=== PATIENT | female | born 1965 | race Caucasian/White ===

== ENCOUNTER 2017-11-27 11:58 | Inpatient (IN) | payer OTHER ==
[~2017-11-27] VITALS: Ht 165.1 cm; Wt 50.8 kg
[~2017-11-27 11:58] MED LIST: PERCOCET 325 MG1 TA2 PO
--- NOTE | 2017-11-27 12:07 | ED DYSPNEA/ASTHMA COMPLAINT ---
History of Present Illness General Chief Complaint: General Adult Stated Complaint: BIBA FOR SOB, FLU SYMPTOMS Source: patient, family, EMS Exam Limitations: no limitations Vital Signs & Intake/Output Vital Signs & Intake/Output Vital Signs Date Time Temp Pulse Resp B/P B/P Pulse O2 O2 Flow FiO2 Mean Ox Delivery Rate 11/28 1408 98.0 59 18 110/80 94 Nasal 3.0L Cannula 11/28 1236 98 Nasal 3.0L Cannula 11/28 0800 95 Nasal 4.0L Cannula 11/28 0634 98.0 64 20 90/60 96 Nasal 3.0L Cannula 11/28 0000 Nasal 2.5L Cannula 11/27 2307 Nasal 3.0L Cannula 11/27 2146 98.1 72 24 100/66 95 Nasal 3.0L Cannula ED Intake and Output 11/28 0000 11/27 1200 Intake Total 690 Output Total Balance 690 Intake, IV 300 Intake, Oral 390 Number 1 Bowel Movements Patient 112 lb Weight Weight Reported by Patient Measurement Method Reconcile Medications No Known Home Medications Triage Nurses Notes Reviewed? yes Onset: Abrupt Duration: day(s): (5), constant, getting worse Timing: recent history Severity: moderate, severe Activities at Onset: none HPI: 52-year-old female comes into emergency room for further evaluation of shortness of breath. Patient reports that she started to feel sick this past . In general malaise and fatigue. She then started to experience some diarrhea chills body aches. She's been coughing with associated source of breath. She has a history of a [id number]. She still smokes every day. History of emphysema. She is not on oxygen at home. Mucus production with cough. Symptoms got progressively worse. It reveals reports that her oxygen saturation was in the high 80s when he arrived. They gave her 125 mg of Solu-Medrol as well as a DuoNeb. (Larry Castaneda) Allergies Coded Allergies: latex (Severe, HIVES 11/27/17) azithromycin (From ZITHROMAX) (Intermediate, DIARRHEA 11/27/17) Penicillins (UNKNOWN 11/27/17) (Devon LEZAMA,Kar) Past History Travel History Traveled to [place] past 21 day No Medical History Any Pertinent Medical History? see below for history Respiratory: COPD Surgical History Surgical History: non-contributory Family History Hx Contributory? No (Larry Castaneda) Review of Systems Review of Systems Constitutional: Reports: see HPI. EENTM: Reports: no symptoms. Respiratory: Reports: see HPI. Cardiovascular: Reports: see HPI. GI: Reports: see HPI. Genitourinary: Reports: no symptoms. Musculoskeletal: Reports: no symptoms. Skin: Reports: no symptoms. Neurological/Psychological: Reports: no symptoms. Hematologic/Endocrine: Reports: no symptoms. Immunologic/Allergic: Reports: no symptoms. All Other Systems: Reviewed and Negative (Larry Castaneda) Physical Exam Physical Exam General Appearance: well developed/nourished, moderate distress Head: atraumatic Eyes: Bilateral: normal appearance. Ears, Nose, Throat: normal ENT inspection, hearing grossly normal Neck: normal inspection Respiratory: decreased breath sounds, respiratory distress (moderate) Cardiovascular: regular rate/rhythm Extremities: normal inspection Neurologic/Psych: awake, alert, oriented x 3 Skin: intact, normal color Core Measures ACS in differential dx? Yes CVA/TIA Diagnosis No Sepsis Present: No Sepsis Focused Exam Completed? No (Larry Castaneda) Progress Differential Diagnosis: asthma, AMI, bronchitis, CHF, COPD, pericarditis, pulmonary embolism, pneumonia, pneumothorax Plan of Care: Orders Procedure Date/time Status CBC WITHOUT DIFFERENTIAL 11/29 0600 Active BASIC ELECTROLYTES PLUS BUN&CR 11/29 0600 Active PT Evaluate & Treat 11/28 UNK Active EKG 11/28 UNK Active NUTRITIONAL CONSULT 11/28 UNK Active RT: Evaluation 11/27 2307 Active OXYGEN SETUP [facility] 11/27 UNK Complete INCENTIVE SPIROMETRY TRX G 11/27 UNK Complete OXYGEN 11/27 UNK Complete OXYGEN TRANSPORT 11/27 UNK Complete Current Medications Sig/Shaq Start time Last Medication Dose Stop Time Status Admin Moxifloxacin HCl 400 MG DAILY 11/29 1000 AC (Avelox) Methylprednisolone 40 MG Q12 11/28 2200 AC (Solumedrol) Enoxaparin Sodium 40 MG DAILY 11/28 1000 AC (Lovenox) Albuterol Sulfate 2 PUF Q4H 11/28 0000 AC 11/28 (Ventolin) 0358 Acetaminophen 1,000 MG Q6P PRN 11/27 1515 AC (Ofirmev) Hydromorphone HCl 0.4 MG Q12P PRN 11/27 1515 AC (Dilaudid) Ibuprofen 600 MG Q6P PRN 11/27 1515 AC (Motrin) Laboratory Tests 11/28/17 0836: Anion Gap 11, Estimated GFR > 60, BUN/Creatinine Ratio 15.0, Total Bilirubin 0.4 , Direct Bilirubin 0.3, AST 19, ALT 30, Alkaline Phosphatase 80, Total Protein 6.9, Albumin 3.9, CBC w Diff NO MAN DIFF REQ, RBC 4.49, MCV 88.4, MCH 30.5, RDW 13.2, MPV 7.4, Gran % 89.9 H, Lymphocytes % 6.5 L, Monocytes % 3.5, Eosinophils % 0, Basophils % 0.1, Absolute Granulocytes 7.7 H, Absolute Lymphocytes 0.6 L, Absolute Monocytes 0.3, Absolute Eosinophils 0, Absolute Basophils 0, PUBS MCHC 34.5 Diagnostic Imaging: Viewed by Me: Radiology Read. Discussed w/RAD: Radiology Read. Radiology Impression: PATIENT: SHANNAN TRAN PRESENT AGE: 52 PATIENT ACCOUNT NO: [id number] : [id number] LOCATION: [facility] ORDERING PHYSICIAN: Larry ROSA SERVICE DATE: 11/27/17 EXAM TYPE: RAD - XRY-PORTABLE CHEST XRAY EXAMINATION: XR PORTABLE CHEST CLINICAL INFORMATION: Shortness of breath. COMPARISON: Chest x-rays 08/18/[address] chest 08/22/2017 TECHNIQUE: Portable frontal view of the chest was obtained. FINDINGS: Cardiomediastinal silhouette is within normal limits. Lungs appear hyperlucent suggesting underlying emphysematous changes. No focal consolidation. Mild hazy opacity noted at the right lung base likely reflecting atelectasis and/or overlapping structures. No pleural effusion or pneumothorax. No acute osseous abnormality. IMPRESSION: Slight hazy opacity at the right lung base likely reflects atelectasis and/or overlapping structures. Developing pneumonia cannot be completely excluded. Clinical correlation recommended. DICTATED BY: Ced Ga DO DATE/TIME DICTATED:11/27/171515 MEDICINE MAN:AILYN DATE/ TIME TRANSCRIBED:11/27/171515 CONFIDENTIAL, DO NOT COPY WITHOUT APPROPRIATE AUTHORIZATION. <Electronically signed in Other Vendor System> SIGNED BY: Ced Ga DO 11/27/17 1523 Initial ED EKG: normal sinus rhythm, rate (99), borderline t wave abnormalities (Larry Castaneda) Departure Departure Disposition: STILL A PATIENT Condition: Stable Clinical Impression Primary Impression: COPD exacerbation Secondary Impressions: Pneumonia Departure Forms: Customer Survey General Discharge Information Prescriptions: Current Visit Scripts No Known Home Medications Admission Note Spoke With: Reese Barahona MD Documentation of Exam: Documentation of any treatments & extenuating circumstances including Concerns Regarding Discharge (functional status, medication knowledge or non-compliance, living conditions, etc.) that warrant an admission rather than observation: Patient was still tachypnea care in the emergency room. She cannot finish a sentence without causing every other word to catch her breath. She still has rhonchi and wheezing on exam. She has received a continuous nebulizer Solu- Medrol and IV magnesium. Patient will require supplemental oxygen. Pulmonary consult. Respiratory therapy care. Not safe for discharge medically. pt will require iv antibiotics. (Larry Castaneda) PA/TYPER Co-Sign Statement Statement: ED Attending supervision documentation- x I saw and evaluated the patient. I have also reviewed all the pertinent lab results and diagnostic results. I agree with the findings and the plan of care as documented in the PA's/TYPER's documentation. COPD with LUND, hypoxia, pneumonia on CXR [] I have reviewed the ED Record and agree with the PA's/TYPER's documentation. [] Additions or exceptions (if any) to the PAs/TYPER's note and plan are summarized below: [] (Devon LEZAMA,Kar) Critical Care Note Critical Care Note Critical Care Time: 30-74 min (60) (Larry Castaneda)
[2017-11-27 12:54] LABS: ABSOLUTE BASOPHIL COUNT 0 /CUMM (0.0-0.2); ABSOLUTE EOSINOPHIL COUNT 0 /CUMM (0.0-0.7); ABSOLUTE GRANULOCYTE CT 7.1 /CUMM (1.4-6.5); ABSOLUTE LYMPH COUNT 0.7 /CUMM (1.2-3.4); ABSOLUTE MONOCYTE COUNT 0.5 /CUMM (0.10-0.60); BASOPHIL % 0 % (0.0-2.0); EOSINOPHIL % 0 % (0-5); HEMATOCRIT 40.2 % (37-47); MEAN CORPUSCULAR HGB 30.3 PG (27.0-31.0); MEAN CORPUSCULAR VOLUME 88.9 FL (81.0-99.0); MEAN PLATELET VOLUME 6.9 FL (7.4-10.4); RBC DISTRIBUTION WIDTH 12.9 % (11.5-14.5); RED BLOOD CELL CT 4.52 /CUMM (4.20-5.40); WHITE BLOOD CELL COUNT 8.2 /CUMM (4.8-10.8)
[2017-11-27 13:17] LABS: GRANULOCYTE % 85.7 % (42.2-75.2); PLATELET COUNT 232 /CUMM (130-400)
--- NOTE | 2017-11-27 15:09 | History & Physical ---
Gustavo LEZAMA,[facility] 11/27/17 1508: General Information and HPI MD Statement: I have seen and personally examined SHANNAN RECIO and documented this H&P. The patient is a 52 year old F who presented with a patient stated chief complaint of [SOB]. Source of Information: patient, family History of Present Illness: 52 yo F with pmhx of copd, 80 pack year current smoker, vulva cancer, colon cancer s/p chemo and radiation, 6 c-sections, back injury presenting for shortness of breath. Patietn states she started to feel sick this associated with faitgue, dirrhea, chills, and body aches. She has been having productive yellow sputum cough and shortness of breath. States she has been using her home albuterol without any relief. States she came into the ED today because she has had a difficult time moving and associated fecal incontinence with movement since she has been sick. Allergies/Medications Home Med list No Known Home Medications Past History Travel History Traveled to [place] past 21 day No Medical History Respiratory: COPD Cancer(s): colon/rectal cancer, vaginal cancer Surgical History Surgical History: non-contributory Review of Systems Review of Systems Constitutional: Reports: see HPI, chills, malaise, weakness. Denies: fever. Cardiovascular: Denies: chest pain. Respiratory: Reports: cough, short of breath, sputum production. GI: Reports: diarrhea, bowel incontinence, changes in stool. Exam & Diagnostic Data Last 24 Hrs of Vital Signs/I&O Vital Signs Date Time Temp Pulse Resp B/P B/P Pulse O2 O2 Flow FiO2 Mean Ox Delivery Rate 11/28 0000 Nasal 2.5L Cannula 11/27 2307 Nasal 3.0L Cannula 11/27 2146 98.1 72 24 100/66 95 Nasal 3.0L Cannula 11/27 1859 97.8 78 24 100/64 95 Nasal 3.0L Cannula 11/27 1822 Nasal 2.5L Cannula 11/27 1545 98.3 96 22 116/50 94 Nasal 2.5L Cannula 11/27 1222 96 Nasal 2.5L Cannula 11/27 1210 95 Nasal 2.0L Cannula 11/27 1208 99.0 108 26 124/56 94 Room Air Intake & Output 11/28 0800 11/28 0000 11/27 1600 Intake Total 690 Output Total Balance 690 Intake, IV 300 Intake, Oral 390 Number 1 Bowel Movements Patient 112 lb 112 lb Weight Weight Reported by Patient Estimated Measurement Method Physical Exam General Appearance Alert, Oriented X3, Cooperative, Mild Distress Cardiovascular Regular Rate, Normal S1, Normal S2 Lungs diffuse decrease air movement Abdomen Normal Bowel Sounds, Soft, No Tenderness Extremities 2+ radial pulses b/l Last 24 Hrs of Labs/Reji: Laboratory Tests 11/27/17 1604: Urine Color YEL, Urine Clarity HAZY H, Urine pH 6.0, Ur Specific [place] 1.025, Urine Protein TRACE H, Urine Ketones >=80, Urine Nitrite NEG, Urine Bilirubin NEG@ICTO, Urine Urobilinogen 0.2, Ur Leukocyte Esterase NEG, Ur Microscopic SEDIMENT EXAMINED, Urine RBC RARE, Urine WBC RARE, Ur Epithelial Cells RARE, Urine Bacteria FEW H, Urine Mucus FEW, Urine Hemoglobin TRACE-INTACT, Urine Glucose NEG 11/27/17 1245: Anion Gap 13, Estimated GFR > 60, BUN/Creatinine Ratio 13.3, Glucose 126 H, Calcium 8.8, Total Bilirubin 0.7, AST 23, ALT 32, Alkaline Phosphatase 78, Troponin I < 0.01, Total Protein 6.7, Albumin 3.8, Globulin 2.9, Albumin/ Globulin Ratio 1.3, CBC w Diff NO MAN DIFF REQ, RBC 4.52, MCV 88.9, MCH 30.3, RDW 12.9, MPV 6.9 L, Gran % 85.7 H, Lymphocytes % 8.5 L, Monocytes % 5.8, Eosinophils % 0, Basophils % 0, Absolute Granulocytes 7.1 H, Absolute Lymphocytes 0.7 L, Absolute Monocytes 0.5, Absolute Eosinophils 0, Absolute Basophils 0, PUBS MCHC 34.0 Microbiology 11/27 1914 LOWER RESP: Respiratory Culture - RES 11/27 1914 LOWER RESP: Gram Stain - RES 11/27 160 URINE ROUT: Legionella Antigen - COMP 11/27 160 URINE ROUT: Streptococcus pneumoniae Antigen (M - COMP STREP PNEUMO BACTERIAL AG 11/27 1440 NASOPHARYN: Influenza Virus A & B Rapid Smear - COMP Assessment/Plan Assessment: 52 yo F with pmhx of copd, 80 pack year current smoker, vulva cancer, colon cancer s/p chemo and radiation, 6 c-sections, back injury presenting for shortness of breath most likely due to COPD exascerbation #COPD exascaerbation WBC 8.2 trop <.01 negative flu CXR: Slight hazy opacity at the right lung base likely reflects atelectasis urine strep pneumo + -f/u sputum cx -cont trc, nebs, solumedrol -f/u pulm consult -smoking cessaiton #low K 3.0 -replete as needed #borderline low Na 134 -cont to monitor #hx of reported abnormal lfts -f/u LFTS #DNR DNI #DVT prophylaxos - lovenox As Ranked By This Provider Problem List: 1. COPD exacerbation 2. Pneumonia Core Measures/Misc (08/12) Acute Coronary Syndrome ACS Diagnosis: No Congestive Heart Failure Congestive Heart Failure Diagnosis No Cerebrovascular Accident CVA/TIA Diagnosis: No VTE (View Protocol) VTE Risk Factors Acute Medical Illness No Mechanical VTE Prophylaxis d/t Other No VTE Pharm Prophylaxis d/t NA PharmProphylax ordered Sepsis (View protocol) Sepsis Present: No Albalwai,Afaf 11/27/17 1750: General Information and HPI Allergies/Medications Allergies: Coded Allergies: latex (Severe, HIVES 11/27/17) azithromycin (From ZITHROMAX) (Intermediate, DIARRHEA 11/27/17) Penicillins (UNKNOWN 11/27/17) Resident Review Statement Resident Statement: examined this patient, discussed with help desk internship, agreed with help desk internship, discussed with family, discussed with nursing, reviewed images Other Findings: Mrs. Recio is a 52 yo lady current every day smoker (80 pack/year) with PMHx. of COPD (Emphysema) not on home O2, diagnosed by her PCP, Hx. of colon cancer 2/ 2 chemotherapy and radiotherapy, Hx. of vulvular cancer s/p resection presented with a c/o SOB, productive cought for the last 5 days. 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 Vitals, examination, labs and imaging as above. Assessment: #COPD exacerbation #Heavy smoker Plan: -Will admitt the patient to general medicine floor -Will start her on Solumedrol 40mg Q8hr -Will start Iv azithromycin for anti-inflammatory effect -Will send sputum culture -TRC/ NEBS -CBC, bep at am -Will check LFT, as she mentioned abnormal level recently -Pulmonary consult DVTppx. Lovenox DNR/DNI (Discussed clearly with the patient and she doesn't want resuscitation)
--- NOTE | 2017-11-27 15:23 | RADIOLOGY REPORT ---
EXAMINATION: XR PORTABLE CHEST CLINICAL INFORMATION: Shortness of breath. COMPARISON: Chest x-rays 08/18/[address] chest 08/22/2017 TECHNIQUE: Portable frontal view of the chest was obtained. FINDINGS: Cardiomediastinal silhouette is within normal limits. Lungs appear hyperlucent suggesting underlying emphysematous changes. No focal consolidation. Mild hazy opacity noted at the right lung base likely reflecting atelectasis and/or overlapping structures. No pleural effusion or pneumothorax. No acute osseous abnormality. IMPRESSION: Slight hazy opacity at the right lung base likely reflects atelectasis and/or overlapping structures. Developing pneumonia cannot be completely excluded. Clinical correlation recommended.
--- NOTE | 2017-11-27 18:43 | Admission Certification ---
Admission Certification Certification Statement - As attending physician, I certify that at the time of - admission, based on clinical presentation, severity of - symptoms, need for further diagnostic testing and - therapeutic interventions, and risk of adverse outcomes - without in-hospital treatment, in my clinical assessment, - this patient requires an acute hospital stay for a minimum - of two nights or longer. I have also considered psychsocial - factors such as support system, advanced age, financial - issues, cognitive issues, and failed out-patient treatments, - past re-admission history, safety of patient, and lack of - compliance as applicable. Specific rationale supporting this admission is: Shortness of breath, malaise laceration of COPD and pneumonia
[2017-11-27 18:59] VITALS: BP 100/64
--- NOTE | 2017-11-27 18:59 | PN- Att Addend ---
Attending Addendum Attending Brief Note 52-year-old white female have known for many years, and advised many times to quit smoking but she did not quit, for a few days not feeling well with malaise shortness of breath got worse cough sputum safely worse to the point that she got so short of breath could hardly walk comes to the ER in some respiratory distress, was given respiratory treatments and prednisone. Patient had chest x- ray and CT that shows her COPD and the possible pneumonia and she was given IV erythromycin but half an hour after she got severe diarrhea her temp max was 99, her white count is within normal limits. Her O2 sats 94 on oxygen, she does not use oxygen at home. Will check her sputum might adjust her antibiotics continue oxygen and total respiratory care Laboratory Tests 11/27 11/27 1604 1245 Chemistry Sodium (137 - 145 mmol/L) 134 L Potassium (3.5 - 5.1 mmol/L) 3.0 L Chloride (98 - 107 mmol/L) 97 L Carbon Dioxide (22 - 30 mmol/L) 25 Anion Gap (5 - 16) 13 BUN (7 - 17 mg/dL) 8 Creatinine (0.5 - 1.0 mg/dL) 0.6 Estimated GFR (>60 ml/min) > 60 BUN/Creatinine Ratio (7 - 25 %) 13.3 Glucose (65 - 99 mg/dL) 126 H Calcium (8.4 - 10.2 mg/dL) 8.8 Total Bilirubin (0.2 - 1.3 mg/dL) 0.7 AST (14 - 36 U/L) 23 ALT (9 - 52 U/L) 32 Alkaline Phosphatase (<127 U/L) 78 Troponin I (< 0.11 ng/ml) < 0.01 Total Protein (6.3 - 8.2 g/dL) 6.7 Albumin (3.5 - 5.0 g/dL) 3.8 Globulin (1.9 - 4.2 gm/dL) 2.9 Albumin/Globulin Ratio (1.1 - 2.2 %) 1.3 Hematology CBC w Diff NO MAN DIFF REQ WBC (4.8 - 10.8 /CUMM) 8.2 RBC (4.20 - 5.40 /CUMM) 4.52 Hgb (12.0 - 16.0 G/DL) 13.7 Hct (37 - 47 %) 40.2 MCV (81.0 - 99.0 FL) 88.9 MCH (27.0 - 31.0 PG) 30.3 RDW (11.5 - 14.5 %) 12.9 Plt Count (130 - 400 /CUMM) 232 MPV (7.4 - 10.4 FL) 6.9 L Gran % (42.2 - 75.2 %) 85.7 H Lymphocytes % (20.5 - 51.1 %) 8.5 L Monocytes % (1.7 - 9.3 %) 5.8 Eosinophils % (0 - 5 %) 0 Basophils % (0.0 - 2.0 %) 0 Absolute Granulocytes (1.4 - 6.5 /CUMM) 7.1 H Absolute Lymphocytes (1.2 - 3.4 /CUMM) 0.7 L Absolute Monocytes (0.10 - 0.60 /CUMM) 0.5 Absolute Eosinophils (0.0 - 0.7 /CUMM) 0 Absolute Basophils (0.0 - 0.2 /CUMM) 0 PUBS MCHC (33.0 - 37.0 G/DL) 34.0 Urines Urine Color (YEL,AMB,STR) YEL Urine Clarity (CLEAR) HAZY H Urine pH (5.0 - 8.0) 6.0 Ur Specific [place] (1.001 - 1.035) 1.025 Urine Protein (NEG,<30 MG/DL) TRACE H Urine Ketones (NEG) >=80 Urine Nitrite (NEG) NEG Urine Bilirubin (NEG) NEG@ICTO Urine Urobilinogen (0.1 - 1.0 EU/dl) 0.2 Ur Leukocyte Esterase (NEG) NEG Ur Microscopic SEDIMENT EXAMINED Urine RBC (0 - 5 /HPF) RARE Urine WBC (0 - 2 /HPF) RARE Ur Epithelial Cells (NONE,FEW) RARE Urine Bacteria (NEG/NONE) FEW H Urine Mucus (FEW,NONE) FEW Urine Hemoglobin (NEG) TRACE-INTACT Urine Glucose (N MG/DL) NEG
[2017-11-27 21:46] VITALS: BP 100/66
[2017-11-28 06:34] VITALS: BP 90/60
--- NOTE | 2017-11-28 10:12 | PN- Att Addend ---
Attending Addendum Attending Brief Note Patient feeling better sitting in bed, able to talk without being short of breath, oxygen on. Temp max 99 no major changes on physical to continue present treatment 24 TOTALS 11/28 0000 11/27 0000 Intake Total 690 Output Total Balance 690 Intake, IV 300 Intake, Oral 390 Number 1 Bowel Movements Patient 112 lb Weight Weight Reported by Patient Measurement Method Current Medications Sig/Shaq Start time Last Medication Dose Route Stop Time Status Admin Acetaminophen 1,000 MG Q6P PRN 11/27 1515 AC IV Albuterol Sulfate 2 PUF Q4H 11/28 0000 AC 11/28 INH 0358 Albuterol Sulfate 2 PUF Q4 11/27 1800 DC 11/27 INH 2013 Albuterol Sulfate 3 ML ONCE ONE 11/27 1215 DC 11/27 INH 11/27 1216 1222 Albuterol Sulfate 3 ML ONCE ONE 11/27 1215 DC 11/27 INH 11/27 1216 1222 Albuterol Sulfate 3 ML ONCE ONE 11/27 1215 DC 11/27 INH 11/27 1216 1222 Azithromycin 500 MG DAILY 11/27 1552 DC 11/27 Sodium Chloride 250 ML IV 1617 Ceftriaxone Sodium 1,000 MG DAILY 11/28 1000 UNVr IV Enoxaparin Sodium 40 MG DAILY 11/28 1000 AC SC Hydromorphone HCl 0.4 MG Q12P PRN 11/27 1515 AC IV Ibuprofen 600 MG Q6P PRN 11/27 1515 AC PO Magnesium Sulfate 1 GM ONCE ONE 11/27 1215 DC 11/27 Dextrose/Water 100 ML IV 11/27 1614 1226 Methylprednisolone 40 MG Q8H 11/28 0400 AC 11/28 IV 0358 Methylprednisolone 40 MG Q8 11/27 1706 DC 11/27 IV 2012 Potassium Chloride 0 .STK-MED ONE 11/27 1534 DC PO Potassium Chloride 60 MEQ ONCE ONE 11/27 1515 DC 11/27 PO 11/27 1516 1549 Laboratory Tests 11/28/17 0836: Anion Gap 11, Estimated GFR > 60, BUN/Creatinine Ratio 15.0, Total Bilirubin 0.4 , Direct Bilirubin 0.3, AST 19, ALT 30, Alkaline Phosphatase 80, Total Protein 6.9, Albumin 3.9, CBC w Diff Pending, WBC Pending, RBC Pending, Hgb Pending, Hct Pending, MCV Pending, MCH Pending, RDW Pending, Plt Count Pending, MPV Pending, PUBS MCHC Pending 11/27/17 1604: Urine Color YEL, Urine Clarity HAZY H, Urine pH 6.0, Ur Specific [place] 1.025, Urine Protein TRACE H, Urine Ketones >=80, Urine Nitrite NEG, Urine Bilirubin NEG@ICTO, Urine Urobilinogen 0.2, Ur Leukocyte Esterase NEG, Ur Microscopic SEDIMENT EXAMINED, Urine RBC RARE, Urine WBC RARE, Ur Epithelial Cells RARE, Urine Bacteria FEW H, Urine Mucus FEW, Urine Hemoglobin TRACE-INTACT, Urine Glucose NEG 11/27/17 1245: Anion Gap 13, Estimated GFR > 60, BUN/Creatinine Ratio 13.3, Glucose 126 H, Calcium 8.8, Total Bilirubin 0.7, AST 23, ALT 32, Alkaline Phosphatase 78, Troponin I < 0.01, Total Protein 6.7, Albumin 3.8, Globulin 2.9, Albumin/ Globulin Ratio 1.3, CBC w Diff NO MAN DIFF REQ, RBC 4.52, MCV 88.9, MCH 30.3, RDW 12.9, MPV 6.9 L, Gran % 85.7 H, Lymphocytes % 8.5 L, Monocytes % 5.8, Eosinophils % 0, Basophils % 0, Absolute Granulocytes 7.1 H, Absolute Lymphocytes 0.7 L, Absolute Monocytes 0.5, Absolute Eosinophils 0, Absolute Basophils 0, PUBS MCHC 34.0 Microbiology 11/27 160 URINE ROUT: Legionella Antigen - COMP 11/27 160 URINE ROUT: Streptococcus pneumoniae Antigen (M - COMP STREP PNEUMO BACTERIAL AG 11/27 1440 NASOPHARYN: Influenza Virus A & B Rapid Smear - COMP Microbiology Date/Time Procedure - Status Source Growth 11/27 1914 Respiratory Culture - RES LOWER RESP 11/27 1914 Gram Stain - RES LOWER RESP 11/27 1604 Legionella Antigen - COMP URINE ROUT 11/27 160 Streptococcus pneumoniae Antigen (M - COMP URINE ROUT STREP PNEUMO BACTERIAL AG 11/27 1440 Influenza Virus A & B Rapid Smear - COMP NASOPHARYN Vital Signs Date Time Temp Pulse Resp B/P B/P Pulse O2 O2 Flow FiO2 Mean Ox Delivery Rate 11/28 0800 95 Nasal 4.0L Cannula 11/28 0634 98.0 64 20 90/60 96 Nasal 3.0L Cannula 11/28 0000 Nasal 2.5L Cannula 11/27 2307 Nasal 3.0L Cannula 11/27 2146 98.1 72 24 100/66 95 Nasal 3.0L Cannula 11/27 1859 97.8 78 24 100/64 95 Nasal 3.0L Cannula 11/27 1822 Nasal 2.5L Cannula 11/27 1545 98.3 96 22 116/50 94 Nasal 2.5L Cannula 11/27 1222 96 Nasal 2.5L Cannula 11/27 1210 95 Nasal 2.0L Cannula 11/27 1208 99.0 108 26 124/56 94 Room Air
[2017-11-28 10:21] LABS: ABSOLUTE BASOPHIL COUNT 0 /CUMM (0.0-0.2); ABSOLUTE EOSINOPHIL COUNT 0 /CUMM (0.0-0.7); ABSOLUTE GRANULOCYTE CT 7.7 /CUMM (1.4-6.5); ABSOLUTE LYMPH COUNT 0.6 /CUMM (1.2-3.4); ABSOLUTE MONOCYTE COUNT 0.3 /CUMM (0.10-0.60); BASOPHIL % 0.1 % (0.0-2.0); EOSINOPHIL % 0 % (0-5); HEMATOCRIT 39.7 % (37-47); MEAN CORPUSCULAR HGB 30.5 PG (27.0-31.0); MEAN CORPUSCULAR HGB CONC 34.5 G/DL (33.0-37.0); MEAN CORPUSCULAR VOLUME 88.4 FL (81.0-99.0); MEAN PLATELET VOLUME 7.4 FL (7.4-10.4); RBC DISTRIBUTION WIDTH 13.2 % (11.5-14.5); RED BLOOD CELL CT 4.49 /CUMM (4.20-5.40); WHITE BLOOD CELL COUNT 8.6 /CUMM (4.8-10.8)
[2017-11-28 10:55] LABS: GRANULOCYTE % 89.9 % (42.2-75.2); PLATELET COUNT 279 /CUMM (130-400)
--- NOTE | 2017-11-28 11:22 | PN- Housestaff ---
Subjective Follow-up For: SOB Subjective: States she is feeling better. SOB improved. Cough improving. Sputum production slightly less Review of Systems Constitutional: Reports: see HPI. Cardiovascular: Reports: no symptoms. Respiratory: Reports: cough, short of breath, sputum production. Gastrointestinal: Reports: no symptoms. Genitourinary: Reports: no symptoms. Musculoskeletal: Reports: no symptoms. Objective Last 24 Hrs of Vital Signs/I&O Vital Signs Date Time Temp Pulse Resp B/P B/P Pulse O2 O2 Flow FiO2 Mean Ox Delivery Rate 11/28 1408 98.0 59 18 110/80 94 Nasal 3.0L Cannula 11/28 1236 98 Nasal 3.0L Cannula 11/28 0800 95 Nasal 4.0L Cannula 11/28 0634 98.0 64 20 90/60 96 Nasal 3.0L Cannula 11/28 0000 Nasal 2.5L Cannula 11/27 2307 Nasal 3.0L Cannula 11/27 2146 98.1 72 24 100/66 95 Nasal 3.0L Cannula 11/27 1859 97.8 78 24 100/64 95 Nasal 3.0L Cannula 11/27 1822 Nasal 2.5L Cannula Intake & Output 11/28 1600 11/28 0800 11/28 0000 Intake Total 720 240 690 Output Total 400 Balance 320 240 690 Intake, IV 300 Intake, Oral 720 240 390 Number 0 1 Bowel Movements Output, Urine 400 Patient 112 lb 112 lb Weight Weight Reported by Patient Measurement Method Physical Exam General Appearance: Alert, Oriented X3, Cooperative, No Acute Distress Skin Temp/Moisture Exam: Warm/Dry Cardiovascular: Regular Rate, Normal S1, Normal S2 Lungs: decreased lung sounds diffusely Abdomen: Normal Bowel Sounds, Soft, No Tenderness Extremities: 2 radial pulses Current Medications: Current Medications Sig/Shaq Start time Last Medication Dose Route Stop Time Status Admin Acetaminophen 1,000 MG Q6P PRN 11/27 1515 AC IV Albuterol Sulfate 2 PUF Q4H 11/28 0000 AC 11/28 INH 0358 Albuterol Sulfate 2 PUF Q4 11/27 1800 DC 11/27 INH 2013 Azithromycin 500 MG DAILY 11/27 1552 DC 11/27 Sodium Chloride 250 ML IV 1617 Ceftriaxone Sodium 1,000 MG DAILY 11/28 1000 DC IV Ciprofloxacin 500 MG BID 11/28 1047 DC 11/28 PO 12/02 1046 1130 Enoxaparin Sodium 40 MG DAILY 11/28 1000 AC SC Hydromorphone HCl 0.4 MG Q12P PRN 11/27 1515 AC IV Ibuprofen 600 MG Q6P PRN 11/27 1515 AC PO Methylprednisolone 40 MG Q12 11/28 2200 AC IV Methylprednisolone 40 MG Q8H 11/28 0400 DC 11/28 IV 1130 Methylprednisolone 40 MG Q8 11/27 1706 DC 11/27 IV 2012 Moxifloxacin HCl 400 MG DAILY 11/29 1000 AC PO Patient Medication 1 ED ONE ONE 11/28 1230 SC Teaching ED 11/28 1231 Last 24 Hrs of Lab/Reji Results Last 24 Hrs of Labs/Mics: Laboratory Tests 11/28/17 0836: Anion Gap 11, Estimated GFR > 60, BUN/Creatinine Ratio 15.0, Total Bilirubin 0.4 , Direct Bilirubin 0.3, AST 19, ALT 30, Alkaline Phosphatase 80, Total Protein 6.9, Albumin 3.9, CBC w Diff NO MAN DIFF REQ, RBC 4.49, MCV 88.4, MCH 30.5, RDW 13.2, MPV 7.4, Gran % 89.9 H, Lymphocytes % 6.5 L, Monocytes % 3.5, Eosinophils % 0, Basophils % 0.1, Absolute Granulocytes 7.7 H, Absolute Lymphocytes 0.6 L, Absolute Monocytes 0.3, Absolute Eosinophils 0, Absolute Basophils 0, PUBS MCHC 34.5 Microbiology 11/27 1914 LOWER RESP: Respiratory Culture - RES 11/27 1914 LOWER RESP: Gram Stain - RES Assessment/Plan Assessment: 52 yo F with pmhx of copd, 80 pack year current smoker, vulva cancer, colon cancer s/p chemo and radiation, 6 c-sections, back injury presenting for shortness of breath most likely due to COPD exascerbation #COPD exascaerbation WBC 8.6 trop <.01 negative flu CXR: Slight hazy opacity at the right lung base likely reflects atelectasis urine strep pneumo + -f/u pulm consult -cont cipro -f/u sputum cx -cont trc, nebs, solumedrol -f/u pulm consult -smoking cessaiton #low K - resolved 4.1 -replete as needed #borderline low Na - resolved 139 -cont to monitor #hx of reported abnormal lfts LFTs normal #DNR DNI #DVT prophylaxos - lovenox Problem List: 1. Pneumonia 2. COPD exacerbation Pain Ratin Pain Location: none Pain Goal: Pain 4 or less Pain Plan: pain pathway Tomorrow's Labs & Rationales: cbc bep
[2017-11-28 14:08] VITALS: BP 110/80
--- NOTE | 2017-11-28 23:49 | Event Note ---
Event Note Event Note: S; I was informed by the nurse that the patient wants to leave AMA. B; Patient was admitted for shortness of breath likely secondary to COPD exacerbation secondary to pneumonia. Patient was treated with IV Solu-Medrol and ciprofloxacin. A/R; My resident and myself went to speak with the patient. She was sitting comfortably in her bed and stated she wants to go home to smoke a cigarette and be with her Cat during the snowstorm and also does not want to take IV steroids as it makes her furious and aggressive. Patient was informed about all the risks of leaving AMA. Dr. Barahona was called and was notified of the above event.
[2017-11-29] MEDS ORDERED: PREDNISONE10 M2 PO (14:55)
[2017-11-29] MEDS ORDERED: PROAIR HFA8.5 GM INH (14:55)
== END 2017-11-28 21:30 | disposition left against medical advice (07) | DRG 140 ==
LOC: ERH 11:58 → 2NA 14:18 → ERHI 14:18 → ENRESERV 16:09 → ENTRNSPT 17:59 → 2NA 18:15 → CMPTRNSPT 18:20 → 2NA 11-28 21:30
PROVIDERS: Physician Assistant Medical; Student in an Organized Health Care Education/Training Program
DX: J44.0 Chronic obstructive pulmonary disease with (acute) lower respiratory infection (principal); J18.9 Pneumonia, unspecified organism; J44.1 Chronic obstructive pulmonary disease with (acute) exacerbation; Z66 Do not resuscitate; F17.210 Nicotine dependence, cigarettes, uncomplicated; Z85.038 Personal history of other malignant neoplasm of large intestine; Z85.44 Personal history of malignant neoplasm of other female genital organs
CPT/HCPCS: 2NASP; 36415; 71045; 81001; 82436; 87070; 87449; 87450; 87804; 87804-59; 93005; 93010; 94644; 96365; 96366; 99291; J0456; J1650; J2920; J3490; J7040

== ENCOUNTER 2017-11-29 14:08 | Inpatient (IN) | payer OTHER ==
[~2017-11-29] VITALS: Ht 165.1 cm; Wt 45.4 kg
--- NOTE | 2017-11-29 14:32 | ED DYSPNEA/ASTHMA COMPLAINT ---
History of Present Illness General Chief Complaint: Dyspnea (COPD, CHF, Other) Stated Complaint: COPD,PNA, LEFT AMA 11/28 Source: patient, family, old records Exam Limitations: no limitations Vital Signs & Intake/Output Vital Signs & Intake/Output Vital Signs Date Time Temp Pulse Resp B/P B/P Pulse O2 O2 Flow FiO2 Mean Ox Delivery Rate 11/29 1559 Room Air Room Air 11/29 1555 98.1 74 20 104/56 95 Room Air 11/29 1413 98.0 102 20 125/85 94 Room Air Allergies Coded Allergies: latex (Severe, HIVES 11/27/17) azithromycin (From ZITHROMAX) (Intermediate, DIARRHEA 11/27/17) Penicillins (UNKNOWN 11/27/17) Reconcile Medications Albuterol Sulfate (Proair Hfa) 90 MCG HFA.AER.AD 2 PUF INH Q4-6 PRN PRN SHORTNESS OF BREATH (Reported) Prednisone 10 MG TABLET 1 TAB PO DAILY STEROID (Reported) Triage Note: PT TO ED FOR SOB, LEFT DILEEP AMA YESTERDAY "BECAUSE I COULDN'T SMOKE AND I HAD THINGS TO DO" STATING SHE WAS ADMITTED FOR COPD EXACERBATION AND PNA, RETURNING TO ED TODAY FOR WORSENING SOB AND LUND. Triage Nurses Notes Reviewed? yes HPI: Patient was admitted on November 27 for COPD exacerbation and pneumonia. Patient signed out AMA on November 28. Patient states her breathing is worsening and she spoke to her primary care physician who can answer to come back to the hospital for readmission. Productive cough. Positive chills. Positive anorexia. No orthopnea. No chest pain or chest tightness. Patient took steroids and used her nebulizer just prior to presentation to the emergency department. Past History Travel History Traveled to [place] past 21 day No Medical History Any Pertinent Medical History? 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 No Review of Systems Review of Systems Constitutional: Reports: see HPI, chills, weakness. EENTM: Reports: no symptoms, see HPI. Respiratory: Reports: see HPI, cough, short of breath, sputum production, wheezing. Cardiovascular: Reports: no symptoms. GI: Reports: see HPI. Genitourinary: Reports: no symptoms. Musculoskeletal: Reports: no symptoms. Skin: Reports: no symptoms. Neurological/Psychological: Reports: no symptoms. Hematologic/Endocrine: Reports: no symptoms. Immunologic/Allergic: Reports: no symptoms. All Other Systems: Reviewed and Negative Physical Exam Physical Exam General Appearance: well developed/nourished, alert, awake, anxious, moderate distress Head: atraumatic Eyes: Bilateral: PERRL, EOMI. Ears, Nose, Throat: normal pharynx, normal ENT inspection, hearing grossly normal Neck: normal inspection, supple, full range of motion Respiratory: decreased breath sounds, wheezing, respiratory distress Cardiovascular: regular rate/rhythm, normal peripheral pulses Gastrointestinal: normal bowel sounds, soft, non-tender Extremities: normal inspection, normal capillary refill, normal range of motion, no edema Neurologic/Psych: no motor/sensory deficits, awake, alert, oriented x 3, normal mood/affect Skin: intact, normal color, warm/dry Lymphatic: no anterior cervical lv Core Measures ACS in differential dx? No CVA/TIA Diagnosis No Sepsis Present: No Sepsis Focused Exam Completed? No Progress Differential Diagnosis: bronchitis, COPD, pneumonia Plan of Care: Orders Procedure Date/time Status Regular Diet 11/30 B Active ED Holding Orders 11/29 1710 Active Admit to inpatient 11/29 171 Active Vital Signs 11/29 171 Active Code Status 11/29 171 Active COMPREHENSIVE METABOLIC PANEL 11/29 1431 Complete CBC WITHOUT DIFFERENTIAL 11/29 1431 Complete Current Medications Sig/Shaq Start time Last Medication Dose Stop Time Status Admin Nicotine 2 MG Q2P PRN 11/29 1445 AC (Nicotine) Laboratory Tests 11/29/17 1500: Anion Gap 12, Estimated GFR > 60, BUN/Creatinine Ratio 22.9, Glucose 114 H, Calcium 9.4, Total Bilirubin 0.5, AST 26, ALT 41, Alkaline Phosphatase 80, Total Protein 7.1, Albumin 4.1, Globulin 3.0, Albumin/Globulin Ratio 1.4, CBC w Diff NO MAN DIFF REQ, RBC 4.90, MCV 90.3, MCH 29.7, RDW 13.3, MPV 7.2 L, Gran % 76.9 H, Lymphocytes % 17.8 L, Monocytes % 4.9, Eosinophils % 0.1, Basophils % 0.3, Absolute Granulocytes 9.3 H, Absolute Lymphocytes 2.1, Absolute Monocytes 0.6, Absolute Eosinophils 0, Absolute Basophils 0, PUBS MCHC 32.9 L Diagnostic Imaging: Viewed by Me: Radiology Read. Discussed w/RAD: Radiology Read. CXR Impression: PATIENT: SHANNAN TRAN PRESENT AGE: 52 PATIENT ACCOUNT NO: [id number] : 67 LOCATION: [facility] ORDERING PHYSICIAN: Jeff Sewell MD SERVICE DATE: 11/29/17 EXAM TYPE: RAD - XRY- PORTABLE CHEST XRAY EXAMINATION: XR PORTABLE CHEST CLINICAL INFORMATION: Cough and shortness of breath. COMPARISON: 11/27/2017 TECHNIQUE: Portable frontal view of the chest was obtained. FINDINGS: The lungs appear hyperexpanded. No consolidation, edema, or effusion. Improvement of the previous hazy right basilar opacity. No pneumothorax. The cardiomediastinal silhouette is within normal limits. No acute osseous abnormality. IMPRESSION: Hyperexpanded lungs. No consolidation. DICTATED BY: Corbin Falk MD DATE/TIME DICTATED:11/29/171506 SENIOR SALES REPRESENTATIVE:AILYN DATE/TIME TRANSCRIBED:11/29/171506 CONFIDENTIAL, DO NOT COPY WITHOUT APPROPRIATE AUTHORIZATION. <Electronically signed in Other Vendor System> SIGNED BY: Corbin Falk MD 11/29/17 1510 Initial ED EKG: none Departure Departure Disposition: STILL A PATIENT Condition: Fair Clinical Impression Primary Impression: COPD exacerbation Referrals: Reese Barahona MD (PCP/Family) Departure Forms: Customer Survey General Discharge Information Admission Note Spoke With: Reese Barahona MD Documentation of Exam: Documentation of any treatments & extenuating circumstances including Concerns Regarding Discharge (functional status, medication knowledge or non-compliance, living conditions, etc.) that warrant an admission rather than observation: [IV STEROIDS, NEBS, ABX, RESP TREATMENT, PULM CONSULT] Critical Care Note Critical Care Note Critical Care Time: non-applicable
[2017-11-29] MEDS ORDERED: PREDNISONE10 M2 PO (14:55)
[2017-11-29] MEDS ORDERED: PROAIR HFA8.5 GM INH (14:55)
--- NOTE | 2017-11-29 15:10 | RADIOLOGY REPORT ---
EXAMINATION: XR PORTABLE CHEST CLINICAL INFORMATION: Cough and shortness of breath. COMPARISON: 11/27/2017 TECHNIQUE: Portable frontal view of the chest was obtained. FINDINGS: The lungs appear hyperexpanded. No consolidation, edema, or effusion. Improvement of the previous hazy right basilar opacity. No pneumothorax. The cardiomediastinal silhouette is within normal limits. No acute osseous abnormality. IMPRESSION: Hyperexpanded lungs. No consolidation.
[2017-11-29 15:12] LABS: ABSOLUTE BASOPHIL COUNT 0 /CUMM (0.0-0.2); ABSOLUTE EOSINOPHIL COUNT 0 /CUMM (0.0-0.7); ABSOLUTE GRANULOCYTE CT 9.3 /CUMM (1.4-6.5); ABSOLUTE LYMPH COUNT 2.1 /CUMM (1.2-3.4); ABSOLUTE MONOCYTE COUNT 0.6 /CUMM (0.10-0.60); BASOPHIL % 0.3 % (0.0-2.0); EOSINOPHIL % 0.1 % (0-5); GRANULOCYTE % 76.9 % (42.2-75.2); HEMATOCRIT 44.2 % (37-47); MEAN CORPUSCULAR HGB 29.7 PG (27.0-31.0); MEAN CORPUSCULAR HGB CONC 32.9 G/DL (33.0-37.0); MEAN CORPUSCULAR VOLUME 90.3 FL (81.0-99.0); MEAN PLATELET VOLUME 7.2 FL (7.4-10.4); PLATELET COUNT 365 /CUMM (130-400); RBC DISTRIBUTION WIDTH 13.3 % (11.5-14.5); WHITE BLOOD CELL COUNT 12.1 /CUMM (4.8-10.8)
--- NOTE | 2017-11-29 17:56 | History & Physical ---
See Addendum General Information and HPI MD Statement: I have seen and personally examined SHANNAN TRAN and documented this H&P. The patient is a 52 year old F who presented with a patient stated chief complaint of [SOB]. Source of Information: patient, family, old records Exam Limitations: no limitations History of Present Illness: This is a 52 yo F with PMH COPD, 80 pack year current smoker, vulva cancer, colon cancer s/p chemo and radiation who comes for CC SOB. She was admitted to for same complaint on Nov and left AMA yesterday. She returns today for same complaint. Since she left her symptoms have actually improved but she still describes exertional SOB with minimal effort such as going to the bathroom. This pt has baseline atleast 1ppd hx of smoking but recently escalated to 3ppd due to life stressors. She is now back to baseline. 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 She still complains of cough that is productive of thick white sputum, and SOB. No CP, chills, fever, N/V but some diarrhea still persists. During her previous admission she was found to have strep pneumo urine antigen positive and her sputum grew mixed syd and due to her particular allergies was started on Moxifloxacin . She received IV steroids. Upon d/c she did not have abx but was prescribed po steroids by PCP. She took one tab of 10mg steroid today. She also used her nebs and inhalers with little change in her symptoms. Allergies/Medications Allergies: Coded Allergies: latex (Severe, HIVES 11/27/17) azithromycin (From ZITHROMAX) (Intermediate, DIARRHEA 11/27/17) Penicillins (UNKNOWN 11/27/17) Home Med list Albuterol Sulfate (Proair Hfa) 90 MCG HFA.AER.AD 2 PUF INH Q4-6 PRN PRN SHORTNESS OF BREATH (Reported) Prednisone 10 MG TABLET 1 TAB PO DAILY STEROID (Reported) Compliance With Home Meds: GOOD Past History Travel History Traveled to [place] past 21 day No Medical History Neurological: migraine EENT: NONE Cardiovascular: NONE Respiratory: COPD, emphysema Gastrointestinal: NONE Hepatic: NONE Renal: NONE Musculoskeletal: NONE Psychiatric: anxiety, depression, PTSD Endocrine: NONE Blood Disorders: NONE Cancer(s): colon/rectal cancer, vaginal cancer 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 Ambulation: independent IADLs Independent: shopping, housework, finances, food prep, telephone, transportation , medication admin. Review of Systems Review of Systems Constitutional: Reports: see HPI. Exam & Diagnostic Data Last 24 Hrs of Vital Signs/I&O Vital Signs Date Time Temp Pulse Resp B/P B/P Pulse O2 O2 Flow FiO2 Mean Ox Delivery Rate 11/29 1757 98.0 78 20 102/65 97 Room Air 11/29 1559 Room Air Room Air 11/29 1555 98.1 74 20 104/56 95 Room Air 11/29 1413 98.0 102 20 125/85 94 Room Air Intake & Output 11/29 1600 11/29 0800 11/29 0000 Intake Total 0 Output Total Balance 0 Intake, Oral 0 Patient 45.359 kg Weight Weight Reported by Patient Measurement Method Physical Exam General Appearance Alert, Oriented X3, Cooperative, cachectic Skin No Significant Lesion HEENT PERRLA, EOMI, Mucous Membr. moist/pink, edentulous Neck Supple Cardiovascular Regular Rate, Normal S1, Normal S2, No Murmurs Lungs end expiratory wheeze present in all [place] but particularly in lung bases. No rales or rhonchi. Abdomen Soft, No Tenderness Extremities No Edema Last 24 Hrs of Labs/Reji: Laboratory Tests 11/29/17 1500: Anion Gap 12, Estimated GFR > 60, BUN/Creatinine Ratio 22.9, Glucose 114 H, Calcium 9.4, Total Bilirubin 0.5, AST 26, ALT 41, Alkaline Phosphatase 80, Total Protein 7.1, Albumin 4.1, Globulin 3.0, Albumin/Globulin Ratio 1.4, CBC w Diff NO MAN DIFF REQ, RBC 4.90, MCV 90.3, MCH 29.7, RDW 13.3, MPV 7.2 L, Gran % 76.9 H, Lymphocytes % 17.8 L, Monocytes % 4.9, Eosinophils % 0.1, Basophils % 0.3, Absolute Granulocytes 9.3 H, Absolute Lymphocytes 2.1, Absolute Monocytes 0.6, Absolute Eosinophils 0, Absolute Basophils 0, PUBS MCHC 32.9 L Assessment/Plan Assessment: This is a 52 yo F with PMH COPD, 80 pack year current smoker, vulva cancer, colon cancer s/p chemo and radiation who comes for CC SOB. She was treated for COPD and strep pneumo pneumonia. Vitals: 98.0, HR between 74 and 102, RR 20, BP 102/65, pulse ox 97% on room air ED workup shows: C BC: White count 12.1, hemoglobin 14.5, hematocrit 44.2, platelet 365 BEP: Sodium 141, potassium 3.4, chloride 100, bicarbonate 29, BUN 16, creatinine 0.7. Anion gap 12. Glucose 114. LFTs within normal limits. CXR IMPRESSION:Hyperexpanded lungs. No consolidation. PLAN COPD Exacerbation: Pt has wheezing in all lung [place] but overall much better than when she left AMA. Will resume trt from yesterday. * IV solumedrol * TRC nebs * Encouraged smoking cessation. Pt wants to quit at this time S.Pneumo: WBC 12.1, but afebrile. She has been taking steroids so slightly elevated WBC is non-specific. * F/U Sputum culture * Continue Moxifloxacin 400 daily Hypokalemia: Today at 3.4 * Replete Smoking cessation: Counseled and started pt on low dose nicotine patch. * nicotine patch-increase dose as necessary FC Regular diet As Ranked By This Provider Problem List: 1. Pneumonia 2. COPD exacerbation Core Measures/Misc (08/12) Acute Coronary Syndrome ACS Diagnosis: No Congestive Heart Failure Congestive Heart Failure Diagnosis No Cerebrovascular Accident CVA/TIA Diagnosis: No VTE (View Protocol) VTE Risk Factors Acute Medical Illness No Mechanical VTE Prophylaxis d/t N/A MechProphylax Ordered No VTE Pharm Prophylaxis d/t NA PharmProphylax ordered Sepsis (View protocol) Sepsis Present: No
[2017-11-30 06:25] LABS: ABSOLUTE BASOPHIL COUNT 0 /CUMM (0.0-0.2); ABSOLUTE EOSINOPHIL COUNT 0 /CUMM (0.0-0.7); ABSOLUTE GRANULOCYTE CT 5.9 /CUMM (1.4-6.5); ABSOLUTE LYMPH COUNT 0.9 /CUMM (1.2-3.4); ABSOLUTE MONOCYTE COUNT 0.2 /CUMM (0.10-0.60); BASOPHIL % 0.2 % (0.0-2.0); EOSINOPHIL % 0 % (0-5); HEMATOCRIT 40.2 % (37-47); MEAN CORPUSCULAR HGB 30.2 PG (27.0-31.0); MEAN CORPUSCULAR VOLUME 88.6 FL (81.0-99.0); MEAN PLATELET VOLUME 7.2 FL (7.4-10.4); PLATELET COUNT 348 /CUMM (130-400); RBC DISTRIBUTION WIDTH 13.5 % (11.5-14.5); RED BLOOD CELL CT 4.54 /CUMM (4.20-5.40); WHITE BLOOD CELL COUNT 7.1 /CUMM (4.8-10.8)
[2017-11-30 07:14] LABS: GRANULOCYTE % 83.6 % (42.2-75.2)
--- NOTE | 2017-11-30 08:58 | PN- Housestaff ---
Subjective Follow-up For: COPD Exacerbation S.Pneumo Hypokalemia Smoking cessation Subjective: Pleasant and conversational. Expressed concerns of smoking and would like to know more about nicotine patch. Review of Systems Constitutional: Reports: see HPI. Objective Last 24 Hrs of Vital Signs/I&O Vital Signs Date Time Temp Pulse Resp B/P B/P Pulse O2 O2 Flow FiO2 Mean Ox Delivery Rate 11/30 1233 97.8 79 20 127/58 96 Room Air 11/30 0800 95 Room Air Room Air 11/30 0000 Room Air 11/29 2248 96.6 76 18 114/56 94 Room Air 11/29 1757 98.0 78 20 102/65 97 Room Air 11/29 1559 Room Air Room Air 11/29 1555 98.1 74 20 104/56 95 Room Air 11/29 1413 98.0 102 20 125/85 94 Room Air Intake & Output 11/30 1600 11/30 0800 11/30 0000 Intake Total 310 Output Total Balance 310 Intake, IV 10 Intake, Oral 300 Physical Exam General Appearance: Alert, Oriented X3, Cooperative, No Acute Distress Cardiovascular: Regular Rate Lungs: Normal Air Movement, No rales/rhonchi/wheeze, mildly diminished breath sound in bilateral lungs Abdomen: Normal Bowel Sounds, Soft, No Tenderness Extremities: Normal Pulses Current Medications: Current Medications Sig/Shaq Start time Last Medication Dose Route Stop Time Status Admin Acetaminophen 650 MG Q6P PRN 11/29 1815 AC PO Enoxaparin Sodium 40 MG DAILY 11/30 1000 AC 11/30 SC 1057 Ibuprofen 600 MG Q6P PRN 11/29 1815 AC PO Methylprednisolone 0 .STK-MED ONE 11/29 1938 DC .ROUTE Methylprednisolone 125 MG ONCE ONE 11/29 191 DC 11/29 IV 11/29 191 1939 Moxifloxacin HCl 400 MG DAILY 11/30 1000 AC 11/30 PO 1057 Moxifloxacin HCl 400 MG ONCE ONE 11/29 1445 DC 11/29 PO 11/29 1446 1559 Nicotine 7 MG DAILY 11/29 2200 AC TOP Nicotine 0 .STK-MED ONE 11/29 1539 DC TOP Nicotine 21 MG ONCE ONE 11/29 1445 DC TOP 11/29 1446 Nicotine 2 MG Q2P PRN 11/29 1445 AC PO Oxycodone/ 2 TAB Q6P PRN 11/29 1815 AC Acetaminophen PO Potassium Chloride 0 .STK-MED ONE 11/29 1937 DC PO Potassium Chloride 40 MEQ ONCE ONE 11/29 1914 DC 11/29 PO 11/29 Last 24 Hrs of Lab/Reji Results Last 24 Hrs of Labs/Mics: Laboratory Tests 11/30/17 0604: Anion Gap 11, Estimated GFR > 60, BUN/Creatinine Ratio 20.0, CBC w Diff NO MAN DIFF REQ, RBC 4.54, MCV 88.6, MCH 30.2, RDW 13.5, MPV 7.2 L, Gran % 83.6 H, Lymphocytes % 13.0 L, Monocytes % 3.2, Eosinophils % 0, Basophils % 0.2, Absolute Granulocytes 5.9, Absolute Lymphocytes 0.9 L, Absolute Monocytes 0.2, Absolute Eosinophils 0, Absolute Basophils 0, PUBS MCHC 34.0 11/29/17 1500: Anion Gap 12, Estimated GFR > 60, BUN/Creatinine Ratio 22.9, Glucose 114 H, Calcium 9.4, Total Bilirubin 0.5, AST 26, ALT 41, Alkaline Phosphatase 80, Total Protein 7.1, Albumin 4.1, Globulin 3.0, Albumin/Globulin Ratio 1.4, CBC w Diff NO MAN DIFF REQ, RBC 4.90, MCV 90.3, MCH 29.7, RDW 13.3, MPV 7.2 L, Gran % 76.9 H, Lymphocytes % 17.8 L, Monocytes % 4.9, Eosinophils % 0.1, Basophils % 0.3, Absolute Granulocytes 9.3 H, Absolute Lymphocytes 2.1, Absolute Monocytes 0.6, Absolute Eosinophils 0, Absolute Basophils 0, PUBS MCHC 32.9 L Assessment/Plan Assessment: This is a 52 yo F with PMH COPD, 80 pack year current smoker, vulva cancer, colon cancer s/p chemo and radiation who comes for CC SOB. She was treated for COPD and strep pneumo pneumonia. Vitals: 98.0, HR between 74 and 102, RR 20, BP 102/65, pulse ox 97% on room air ED workup shows: C BC: White count 12.1, hemoglobin 14.5, hematocrit 44.2, platelet 365 BEP: Sodium 141, potassium 3.4, chloride 100, bicarbonate 29, BUN 16, creatinine 0.7. Anion gap 12. Glucose 114. LFTs within normal limits. CXR IMPRESSION:Hyperexpanded lungs. No consolidation. PLAN COPD Exacerbation: Pt's breath sounds were better today. * TRC nebs * Encouraged smoking cessation. Pt wants to quit at this time. However, patient was concerned about the nicotine patch use, however would like to try. S.Pneumo: WBC 12.1 on admission -> 7.1 on latest lab, and Afebrile. The leukocytosis on admission was likely due to steroid use. * F/U Sputum culture * Continue Moxifloxacin 400 daily. Hypokalemia: Today at 4.9 * Continue monitor daily BEP if needed. Smoking cessation: Counseled and started pt on low dose nicotine patch. * nicotine patch-increase dose as necessary DVT PPX Lovenox + ALPS FC Regular diet Problem List: 1. Pneumonia 2. COPD exacerbation 3. Smoker Pain Ratin Pain Location: NA Pain Goal: Remain pain free Pain Plan: NA Tomorrow's Labs & Rationales: CBC/BEP
--- NOTE | 2017-11-30 10:47 | Admission Certification ---
Admission Certification Certification Statement - As attending physician, I certify that at the time of - admission, based on clinical presentation, severity of - symptoms, need for further diagnostic testing and - therapeutic interventions, and risk of adverse outcomes - without in-hospital treatment, in my clinical assessment, - this patient requires an acute hospital stay for a minimum - of two nights or longer. I have also considered psychsocial - factors such as support system, advanced age, financial - issues, cognitive issues, and failed out-patient treatments, - past re-admission history, safety of patient, and lack of - compliance as applicable. Specific rationale supporting this admission is: Exacerbation of COPD
--- NOTE | 2017-11-30 10:50 | PN- Att Addend ---
Attending Addendum Attending Brief Note 52-year-old white female who was in the hospital very recently and signed herself out AGAINST MEDICAL ADVICE. As soon as she got home she was still very short of breath and wheezing she called me and I advised her to return to the hospital she did so, she got her IV steroids and breathing treatments already feeling better and also was a little hypokalemic and this is being replaced will continue present treatment counseling on smoking cessation, and when ready to be discharged to follow with his COPD clinic. Laboratory Tests 11/30 11/29 0604 1500 Chemistry Sodium (137 - 145 mmol/L) 142 141 Potassium (3.5 - 5.1 mmol/L) 4.9 3.4 L Chloride (98 - 107 mmol/L) 105 100 Carbon Dioxide (22 - 30 mmol/L) 26 29 Anion Gap (5 - 16) 11 12 BUN (7 - 17 mg/dL) 14 16 Creatinine (0.5 - 1.0 mg/dL) 0.7 0.7 Estimated GFR (>60 ml/min) > 60 > 60 BUN/Creatinine Ratio (7 - 25 %) 20.0 22.9 Glucose (65 - 99 mg/dL) 114 H Calcium (8.4 - 10.2 mg/dL) 9.4 Total Bilirubin (0.2 - 1.3 mg/dL) 0.5 AST (14 - 36 U/L) 26 ALT (9 - 52 U/L) 41 Alkaline Phosphatase (<127 U/L) 80 Total Protein (6.3 - 8.2 g/dL) 7.1 Albumin (3.5 - 5.0 g/dL) 4.1 Globulin (1.9 - 4.2 gm/dL) 3.0 Albumin/Globulin Ratio (1.1 - 2.2 %) 1.4 Hematology CBC w Diff NO MAN DIFF REQ NO MAN DIFF REQ WBC (4.8 - 10.8 /CUMM) 7.1 12.1 H RBC (4.20 - 5.40 /CUMM) 4.54 4.90 Hgb (12.0 - 16.0 G/DL) 13.7 14.5 Hct (37 - 47 %) 40.2 44.2 MCV (81.0 - 99.0 FL) 88.6 90.3 MCH (27.0 - 31.0 PG) 30.2 29.7 RDW (11.5 - 14.5 %) 13.5 13.3 Plt Count (130 - 400 /CUMM) 348 365 MPV (7.4 - 10.4 FL) 7.2 L 7.2 L Gran % (42.2 - 75.2 %) 83.6 H 76.9 H Lymphocytes % (20.5 - 51.1 %) 13.0 L 17.8 L Monocytes % (1.7 - 9.3 %) 3.2 4.9 Eosinophils % (0 - 5 %) 0 0.1 Basophils % (0.0 - 2.0 %) 0.2 0.3 Absolute Granulocytes (1.4 - 6.5 /CUMM) 5.9 9.3 H Absolute Lymphocytes (1.2 - 3.4 /CUMM) 0.9 L 2.1 Absolute Monocytes (0.10 - 0.60 /CUMM) 0.2 0.6 Absolute Eosinophils (0.0 - 0.7 /CUMM) 0 0 Absolute Basophils (0.0 - 0.2 /CUMM) 0 0 PUBS MCHC (33.0 - 37.0 G/DL) 34.0 32.9 L Current Medications Sig/Shaq Start time Last Medication Dose Route Stop Time Status Admin Acetaminophen 650 MG Q6P PRN 11/29 1814 AC PO Enoxaparin Sodium 40 MG DAILY 11/30 1000 AC SC Ibuprofen 600 MG Q6P PRN 11/29 181 AC PO Methylprednisolone 0 .STK-MED ONE 11/29 1937 DC .ROUTE Methylprednisolone 125 MG ONCE ONE 11/29 1914 DC 11/29 IV 11/29 Moxifloxacin HCl 400 MG DAILY 11/30 1000 AC PO Moxifloxacin HCl 400 MG ONCE ONE 11/29 144 DC 11/29 PO 11/29 144 1559 Nicotine 7 MG DAILY 11/29 2200 AC TOP Nicotine 0 .STK-MED ONE 11/29 1539 DC TOP Nicotine 21 MG ONCE ONE 11/29 144 DC TOP 11/29 1446 Nicotine 2 MG Q2P PRN 11/29 144 AC PO Oxycodone/ 2 TAB Q6P PRN 11/29 181 AC Acetaminophen PO Potassium Chloride 0 .STK-MED ONE 11/29 1937 DC PO Potassium Chloride 40 MEQ ONCE ONE 11/29 1914 DC 11/29 PO 01/04 1916 1939 Vital Signs Date Time Temp Pulse Resp B/P B/P Pulse O2 O2 Flow FiO2 Mean Ox Delivery Rate 11/30 0000 Room Air 11/29 2248 96.6 76 18 114/56 94 Room Air 11/29 1757 98.0 78 20 102/65 97 Room Air 11/29 1559 Room Air Room Air 11/29 1555 98.1 74 20 104/56 95 Room Air 11/29 1413 98.0 102 20 125/85 94 Room Air Intake & Output 11/30 1600 11/30 0800 11/30 0000 Intake Total 310 Output Total Balance 310 Intake, IV 10 Intake, Oral 300
[2017-11-30 12:33] VITALS: BP 127/58
--- NOTE | 2017-11-30 14:45 | Patient Discharge Instructions ---
Discharge Instructions General Discharge Information You were seen/treated for: COPD Exacerbation Strep.Pneumonia Hypokalemia Smoking Cessation Special Instructions: - Please continue ENSURE Clear Supplements. - Please follow up with your primary care physician within 1-2 week of discharge. Inform your primary care physician of this admission to [facility]. - Continue your current medications per discharge instructions. - Please watch for these problems: Fever, Chills, Nausea, Vomiting, Shortness of Breath, Productive Cough, Chest Pain/Discomfort, Abdominal Pain, Active Bleeding or Bloody urine/stool. Diet Continue normal diet: Yes Activity Full Activity/No Limits: Yes Acute Coronary Syndrome Inclusion Criteria At DC or during hospital stay patient has or had the following: ACS DIAGNOSIS No Discharge Core Measures Meds if any: Prescribed or Continued at Discharge Meds if any: NOT Prescribed or Continued at Discharge Congestive Heart Failure Inclusion Criteria At DC or during hospital stay patient has or had the following: CHF DIAGNOSIS No Discharge Core Measures Meds if any: Prescribed or Continued at Discharge Meds if any: NOT Prescribed or Continued at Discharge Cerebrovascular accident Inclusion Criteria At DC or during hospital stay patient has or had the following: CVA/TIA Diagnosis No Discharge Core Measures Meds if any: Prescribed or Continued at Discharge Meds if any: NOT Prescribed or Continued at Discharge Venous thromboembolism Inclusion Criteria VTE Diagnosis No VTE Type NONE VTE Confirmed by (Test) NONE Discharge Core Measures - Per Current guidelines, there needs to be overlap - treatment for the first 5 days of Warfarin therapy. - If discharged on Warfarin prior to 5 days of - overlap therapy, the patient will need to be - assessed for post discharge needs including - *Post discharge parental anticoagulation - *Warfarin and/or parental anticoagulation education - *Follow up date to check INR post discharge At least 5 days overlap therapy as Inpatient No Meds if any: Prescribed or Continued at Discharge Note: Overlap Therapy is Warfarin and Anticoagulant Meds if any: NOT Prescribed or Continued at Discharge
[2017-11-30 16:25] VITALS: BP 124/78
[2017-11-30 16:45] VITALS: BP 100/74
[2017-11-30 22:16] VITALS: BP 98/62
[2017-12-01 07:00] VITALS: BP 110/54
--- NOTE | 2017-12-01 10:28 | PN- Housestaff ---
Gustavo LEZAMA,[facility] 12/01/17 1027: Subjective Follow-up For: SOB Subjective: No acute events overnight. States shortness of breath and productive cough are improving. Patient states that she does not want any nicotine patch at this time. States that she is determined to quit smoking. Review of Systems Constitutional: Reports: no symptoms. Cardiovascular: Reports: no symptoms. Respiratory: Reports: cough, short of breath. Gastrointestinal: Reports: no symptoms. Genitourinary: Reports: no symptoms. Musculoskeletal: Reports: no symptoms. Objective Last 24 Hrs of Vital Signs/I&O Vital Signs Date Time Temp Pulse Resp B/P B/P Pulse O2 O2 Flow FiO2 Mean Ox Delivery Rate 12/01 08 93 Room Air Room Air 12/01 0700 97.6 70 19 110/54 94 Room Air 12/01 0000 Room Air 11/30 2216 98.3 67 20 98/62 95 Room Air 11/30 1645 98.5 86 18 100/74 93 Room Air Room Air 11/30 1638 93 Room Air Room Air 11/30 1625 98.1 77 16 124/78 94 Room Air 11/30 1502 98.1 78 18 122/60 93 Room Air Intake & Output 12/01 1600 12/01 0800 12/01 0000 Intake Total 480 Output Total Balance 480 Intake, Oral 480 Physical Exam General Appearance: Alert, Oriented X3, Cooperative, Mild Distress Skin Temp/Moisture Exam: Warm/Dry Cardiovascular: Regular Rate, Normal S1, Normal S2 Lungs: diffuse wheezing worse on left, diffuse decreased air movement worse on the right Abdomen: Normal Bowel Sounds, Soft, No Tenderness Extremities: 2+ radial pulses Current Medications: Current Medications Sig/Shaq Start time Last Medication Dose Route Stop Time Status Admin Acetaminophen 650 MG Q6P PRN 11/29 1815 AC PO Enoxaparin Sodium 40 MG DAILY 11/30 1000 AC 12/01 SC 1233 Ibuprofen 600 MG Q6P PRN 11/29 1815 AC PO Moxifloxacin HCl 400 MG DAILY 11/30 1000 AC 12/01 PO 1233 Nicotine 7 MG DAILY 11/29 2200 AC TOP Nicotine 2 MG Q2P PRN 11/29 1445 AC PO Oxycodone/ 2 TAB Q6P PRN 11/29 1815 AC Acetaminophen PO Assessment/Plan Assessment: This is a 52 yo F with PMH COPD, 80 pack year current smoker, vulva cancer, colon cancer s/p chemo and radiation who comes for CC SOB. She was treated for COPD and strep pneumo pneumonia. CXR IMPRESSION:Hyperexpanded lungs. No consolidation. PLAN COPD Exacerbation: Pt's breath sounds were better today. * iv methyprednisolon 40 BID * TRC nebs * Encouraged smoking cessation. Pt wants to quit at this time. However, patient was concerned about the nicotine patch use, however would like to try. S.Pneumo: WBC 12.1 on admission -> 7.1 on latest lab, and Afebrile. The leukocytosis on admission was likely due to steroid use. * Sputum culture - mixed respiratory culture * Continue Moxifloxacin 400 daily. Hypokalemia: 4.9 (11/30) * Continue monitor daily BEP if needed. Smoking cessation: Counseled and started pt on low dose nicotine patch. * nicotine patch-increase dose as necessary DVT PPX Lovenox + ALPS FC Regular diet Problem List: 1. COPD exacerbation 2. Pneumonia Pain Ratin Pain Location: none Pain Goal: Pain 4 or less Pain Plan: pain pathway Tomorrow's Labs & Rationales: cbc bep Fidencio Givens MD 12/01/17 1436: Attending MD Review Statement Attending Statement Attending MD Statement: examined this patient, discuss w/resident/PA/LAMINATE FLOOR INSTALLER, agreed w/resident/PA/LAMINATE FLOOR INSTALLER, discussed with family, reviewed EMR data (avail), discussed with nursing, reviewed images, amended to note Attending Assessment/Plan: Mrs. Recio was interviewed and examined. Her EMR was reviewed. She states her breathing is improved but still notes some dyspnea on exertion. She notes productive cough with greenish sputum. She denies fever, chills and pleuritic pain. She has no GI complaints. She has remained afebrile. Her vital signs are stable. Pulmonary exam is notable for decreased breath sounds throughout with prolonged expiratory phase with wheezes. Cardiac exam is negative. Her CBC is normal and cultures are negative. We continue to treat Mrs. Recio for an AE COPD. We are continuing her Avelox as well as nebs. We are continuing to support her smoking cessation. We will add methylprednisolone 40 mg IV twice a day to her regimen today.
[2017-12-01 14:55] VITALS: BP 110/86
[2017-12-01 23:11] VITALS: BP 109/53
[2017-12-02 06:55] VITALS: BP 91/70
--- NOTE | 2017-12-02 09:51 | PN- Housestaff ---
Gustavo LEZAMA,[facility] 12/02/17 0950: Subjective Follow-up For: sob Subjective: No acute events overnight. Still refusing nicotine patch. States no cravings for cigarettes. Decreased appetite but still tryign to eat and drink ensure. States turned off by food. Worried about eating disorder. SOB better. Off oxygen. Review of Systems Constitutional: Reports: see HPI (decreased appetite). Cardiovascular: Reports: see HPI. Respiratory: Reports: short of breath. Gastrointestinal: Reports: see HPI. Genitourinary: Reports: see HPI. Musculoskeletal: Reports: see HPI. Neurological/Psychological: Reports: see HPI (no cravings for nicotine). Objective Last 24 Hrs of Vital Signs/I&O Vital Signs Date Time Temp Pulse Resp B/P B/P Pulse O2 O2 Flow FiO2 Mean Ox Delivery Rate 12/02 654 98.1 68 20 91/70 93 Room Air 12/02 0000 Room Air 12/01 2311 97.6 63 20 109/53 95 Room Air Intake & Output 12/02 1600 12/02 0800 12/02 0000 Intake Total 840 450 300 Output Total Balance 840 450 300 Intake, IV 10 Intake, Oral 840 440 300 Patient 99 lb 15.99 oz Weight Physical Exam General Appearance: Alert, Oriented X3, Cooperative, No Acute Distress Skin Temp/Moisture Exam: Warm/Dry Cardiovascular: Regular Rate, Normal S1, Normal S2 Lungs: diffuse decrease lung movement, diffuse rhonchi greater on R Abdomen: Normal Bowel Sounds, Soft, No Tenderness Extremities: 2+ radial pulses Current Medications: Current Medications Sig/Shaq Start time Last Medication Dose Route Stop Time Status Admin Acetaminophen 650 MG Q6P PRN 11/29 1815 AC PO Enoxaparin Sodium 40 MG DAILY 11/30 1000 AC 12/02 SC 0954 Ibuprofen 600 MG Q6P PRN 11/29 1815 AC PO Methylprednisolone 40 MG Q12 12/01 1435 AC 12/02 IV 0954 Moxifloxacin HCl 400 MG DAILY 11/30 1000 AC 12/02 PO 0954 Nicotine 7 MG DAILY 11/29 2200 AC TOP Nicotine 2 MG Q2P PRN 11/29 1445 AC PO Oxycodone/ 2 TAB Q6P PRN 11/29 1815 AC Acetaminophen PO Last 24 Hrs of Lab/Reji Results Last 24 Hrs of Labs/Mics: Laboratory Tests 12/02/17 1008: CBC w Diff NO MAN DIFF REQ, RBC 4.94, MCV 88.9, MCH 30.2, RDW 13.4, MPV 7.3 L, Gran % 77.4 H, Lymphocytes % 17.6 L, Monocytes % 4.5, Eosinophils % 0.2, Basophils % 0.3, Absolute Granulocytes 8.3 H, Absolute Lymphocytes 1.9, Absolute Monocytes 0.5, Absolute Eosinophils 0, Absolute Basophils 0, PUBS MCHC 34.0 12/02/17 0725: Anion Gap 13, Estimated GFR > 60, BUN/Creatinine Ratio 25.7 H Assessment/Plan Assessment: This is a 52 yo F with PMH COPD, 80 pack year current smoker, vulva cancer, colon cancer s/p chemo and radiation who comes for CC SOB. She was treated for COPD and strep pneumo pneumonia. CXR IMPRESSION:Hyperexpanded lungs. No consolidation. PLAN COPD Exacerbation: Pt's breath sounds were better today. * start po prednisone taper * TRC nebs * Encouraged smoking cessation. Pt wants to quit at this time. However, patient was concerned about the nicotine patch use, however would NOT like to try. S.Pneumo: WBC 12.1 on admission -> 10.7 on latest lab, and Afebrile. The leukocytosis on admission was likely due to steroid use. * Sputum culture - mixed respiratory culture * Continue Moxifloxacin 400 daily. Hypokalemia - resolved: 4.8 (12/02) * Continue monitor daily BEP if needed. Smoking cessation: Counseled and started pt on low dose nicotine patch. * nicotine patch-increase dose as necessary DVT PPX Lovenox + ALPS FC Regular diet Problem List: 1. COPD exacerbation 2. Pneumonia Pain Ratin Pain Location: no pain Pain Goal: Pain 4 or less Pain Plan: pain pathway Tomorrow's Labs & Rationales: cbc bep Fidencio Givens MD 12/02/17 1438: Attending MD Review Statement Attending Statement Attending MD Statement: examined this patient, discuss w/resident/PA/ARCHITECTURE TECHNICIAN, agreed w/resident/PA/ARCHITECTURE TECHNICIAN, reviewed EMR data (avail), amended to note Attending Assessment/Plan: Mrs. Recio was interviewed and examined. Her EMR was reviewed. She notes that her breathing is better today and that she is having less dyspnea with exertion. She remains afebrile with stable vital signs and is oxygenating satisfactorily on room air. She is in no acute distress. Pulmonary exam is notable for mild decrease in air exchange and some soft rhonchi at the right base which clear with cough. Cardiac exam is benign. WBC are normal and electrolytes have normalized. We are can continuing to treat her acute exacerbation of COPD. At this time we can discontinue her intravenous steroids and start her on a rapid oral steroid taper. We are continuing to reinforce her smoking cessation and we have advised that should she develop acute symptoms of nicotine withdrawal that she utilize transdermal nicotine.
[2017-12-02 10:54] LABS: ABSOLUTE BASOPHIL COUNT 0 /CUMM (0.0-0.2); ABSOLUTE EOSINOPHIL COUNT 0 /CUMM (0.0-0.7); ABSOLUTE GRANULOCYTE CT 8.3 /CUMM (1.4-6.5); ABSOLUTE LYMPH COUNT 1.9 /CUMM (1.2-3.4); ABSOLUTE MONOCYTE COUNT 0.5 /CUMM (0.10-0.60); BASOPHIL % 0.3 % (0.0-2.0); EOSINOPHIL % 0.2 % (0-5); GRANULOCYTE % 77.4 % (42.2-75.2); HEMATOCRIT 43.9 % (37-47); MEAN CORPUSCULAR HGB 30.2 PG (27.0-31.0); MEAN CORPUSCULAR VOLUME 88.9 FL (81.0-99.0); MEAN PLATELET VOLUME 7.3 FL (7.4-10.4); PLATELET COUNT 485 /CUMM (130-400); RBC DISTRIBUTION WIDTH 13.4 % (11.5-14.5); RED BLOOD CELL CT 4.94 /CUMM (4.20-5.40)
[2017-12-02 11:06] LABS: WHITE BLOOD CELL COUNT 10.7 /CUMM (4.8-10.8)
[2017-12-02 22:59] VITALS: BP 116/68
[2017-12-03 07:26] VITALS: BP 120/66
--- NOTE | 2017-12-03 07:36 | PN- Housestaff ---
Subjective Follow-up For: COPD Exacerbation Pneumonia Subjective: No overnight event. Patient is breathing on room air. Patient would not want to use nicotine patch. Review of Systems Constitutional: Reports: see HPI. Objective Last 24 Hrs of Vital Signs/I&O Vital Signs Date Time Temp Pulse Resp B/P B/P Pulse O2 O2 Flow FiO2 Mean Ox Delivery Rate 12/03 725 97.8 76 20 120/66 93 Room Air 12/03 0000 Room Air 12/02 2259 97.9 82 20 116/68 95 Room Air Intake & Output 12/03 1600 12/03 0800 12/03 0000 Intake Total 100 480 Output Total Balance 100 480 Intake, Oral 100 480 Physical Exam General Appearance: Alert, Oriented X3, Cooperative, No Acute Distress Cardiovascular: Regular Rate Lungs: Clear to Auscultation, Normal Air Movement Abdomen: Soft, No Tenderness Current Medications: Current Medications Sig/Shaq Start time Last Medication Dose Route Stop Time Status Admin Acetaminophen 650 MG Q6P PRN 11/29 1815 AC 12/03 PO 0516 Enoxaparin Sodium 40 MG DAILY 11/30 1000 AC 12/03 SC 1027 Ibuprofen 600 MG Q6P PRN 11/29 1815 AC PO Methylprednisolone 40 MG Q12 12/01 1435 DC 12/02 IV 2243 Moxifloxacin HCl 400 MG DAILY 11/30 1000 AC 12/03 PO 1027 Nicotine 7 MG DAILY 11/29 2200 AC TOP Nicotine 2 MG Q2P PRN 11/29 1445 AC PO Oxycodone/ 2 TAB Q6P PRN 11/29 1815 AC Acetaminophen PO Prednisone 40 MG DAILY 12/03 1000 AC 12/03 PO 1027 Last 24 Hrs of Lab/Reji Results Last 24 Hrs of Labs/Mics: Laboratory Tests 12/03/17 0809: Anion Gap 15, Estimated GFR > 60, BUN/Creatinine Ratio 27.1 H, CBC w Diff NO MAN DIFF REQ, RBC 4.69, MCV 89.3, MCH 30.3, RDW 13.2, MPV 7.2 L, Gran % 82.8 H , Lymphocytes % 12.9 L, Monocytes % 4.3, Eosinophils % 0, Basophils % 0, Absolute Granulocytes 9.1 H, Absolute Lymphocytes 1.4, Absolute Monocytes 0.5, Absolute Eosinophils 0, Absolute Basophils 0, PUBS MCHC 33.9 Assessment/Plan Assessment: This is a 52 yo F with PMH COPD, 80 pack year current smoker, vulva cancer, colon cancer s/p chemo and radiation who comes for CC SOB. She was treated for COPD and strep pneumo pneumonia. CXR IMPRESSION:Hyperexpanded lungs. No consolidation. PLAN COPD Exacerbation: Pt's breath sounds were better today. * start po prednisone taper, continue to taper at home * [facility] nebs * Encouraged smoking cessation. Pt wants to quit at this time. However, patient was concerned about the nicotine patch use, however would NOT like to try. S.Pneumo: WBC 12.1 on admission -> 11.0 on latest lab, and Afebrile. The leukocytosis on admission was likely due to steroid use. * Sputum culture - mixed respiratory culture * Completed course of Moxifloxacin. Will discharge off abx. Hypokalemia - resolved: 4.3 (12/03) * Continue monitor daily BEP if needed. Smoking cessation: Counseled. Patient would be referred to smoking cessation program by PCP DVT PPX Lovenox + ALPS FC Regular diet Problem List: 1. COPD exacerbation 2. Smoker Pain Ratin Pain Location: NA Pain Goal: Remain pain free Pain Plan: NA Tomorrow's Labs & Rationales: NA
[2017-12-03] MEDS ORDERED: PREDNISONE10 M2 PO ×2 (08:52→11:08)
[2017-12-03 09:22] LABS: ABSOLUTE BASOPHIL COUNT 0 /CUMM (0.0-0.2); ABSOLUTE EOSINOPHIL COUNT 0 /CUMM (0.0-0.7); ABSOLUTE GRANULOCYTE CT 9.1 /CUMM (1.4-6.5); ABSOLUTE LYMPH COUNT 1.4 /CUMM (1.2-3.4); ABSOLUTE MONOCYTE COUNT 0.5 /CUMM (0.10-0.60); BASOPHIL % 0 % (0.0-2.0); EOSINOPHIL % 0 % (0-5); GRANULOCYTE % 82.8 % (42.2-75.2); HEMATOCRIT 41.9 % (37-47); MEAN CORPUSCULAR HGB 30.3 PG (27.0-31.0); MEAN CORPUSCULAR HGB CONC 33.9 G/DL (33.0-37.0); MEAN CORPUSCULAR VOLUME 89.3 FL (81.0-99.0); MEAN PLATELET VOLUME 7.2 FL (7.4-10.4); PLATELET COUNT 443 /CUMM (130-400); RBC DISTRIBUTION WIDTH 13.2 % (11.5-14.5); RED BLOOD CELL CT 4.69 /CUMM (4.20-5.40)
--- NOTE | 2017-12-03 10:59 | PN- Att Addend ---
Attending Addendum Attending Brief Note Better, not short of breath, vital signs stable, no fever. No major changes on physical. Patient finished her antibiotics. Patient will be discharged today, advised not to smoke. The prednisone will be tapered down patient will need to near future a pneumococcal vaccine. Intake & Output 12/03 1600 12/03 04012/02 1600 12/02 0400 12/01 1600 12/01 0400 Intake Total 260 322 1576 300 720 480 Output Total Balance 750 453 3659 300 720 480 Intake, IV 10 Intake, Oral 382 654 8581 300 720 480 Patient 99 lb 15.99 oz Weight Current Medications Sig/Shaq Start time Last Medication Dose Route Stop Time Status Admin Acetaminophen 650 MG Q6P PRN 11/29 1815 AC 12/03 PO 0516 Enoxaparin Sodium 40 MG DAILY 11/30 1000 AC 12/03 SC 1027 Ibuprofen 600 MG Q6P PRN 11/29 1815 AC PO Methylprednisolone 40 MG Q12 12/01 1435 DC 12/02 IV 2243 Moxifloxacin HCl 400 MG DAILY 11/30 1000 AC 12/03 PO 1027 Nicotine 7 MG DAILY 11/29 2200 AC TOP Nicotine 2 MG Q2P PRN 11/29 1445 AC PO Oxycodone/ 2 TAB Q6P PRN 11/29 1815 AC Acetaminophen PO Prednisone 40 MG DAILY 12/03 1000 AC 12/03 PO 1027 Laboratory Tests 12/03/17 0809: Anion Gap 15, Estimated GFR > 60, BUN/Creatinine Ratio 27.1 H, CBC w Diff NO MAN DIFF REQ, RBC 4.69, MCV 89.3, MCH 30.3, RDW 13.2, MPV 7.2 L, Gran % 82.8 H , Lymphocytes % 12.9 L, Monocytes % 4.3, Eosinophils % 0, Basophils % 0, Absolute Granulocytes 9.1 H, Absolute Lymphocytes 1.4, Absolute Monocytes 0.5, Absolute Eosinophils 0, Absolute Basophils 0, PUBS MCHC 33.9 12/02/17 1008: CBC w Diff NO MAN DIFF REQ, RBC 4.94, MCV 88.9, MCH 30.2, RDW 13.4, MPV 7.3 L, Gran % 77.4 H, Lymphocytes % 17.6 L, Monocytes % 4.5, Eosinophils % 0.2, Basophils % 0.3, Absolute Granulocytes 8.3 H, Absolute Lymphocytes 1.9, Absolute Monocytes 0.5, Absolute Eosinophils 0, Absolute Basophils 0, PUBS MCHC 34.0 12/02/17 0725: Anion Gap 13, Estimated GFR > 60, BUN/Creatinine Ratio 25.7 H Vital Signs Date Time Temp Pulse Resp B/P B/P Pulse O2 O2 Flow FiO2 Mean Ox Delivery Rate 12/03 725 97.8 76 20 120/66 93 Room Air 12/03 0000 Room Air 12/02 2259 97.9 82 20 116/68 95 Room Air
== END 2017-12-03 12:43 | DRG 140 ==
LOC: ERH 14:08 → ERHI 17:10 → 2NB 17:10 → ERHI 11-30 04:17 → ENRESERV 11-30 14:30 → ENTRNSPT 11-30 16:24 → 2NB 11-30 16:38 → CMPTRNSPT 11-30 16:52 → 2NB 12-02 21:19
PROVIDERS: Emergency Medicine
DX: J44.1 Chronic obstructive pulmonary disease with (acute) exacerbation (principal); J13 Pneumonia due to Streptococcus pneumoniae; E44.0 Moderate protein-calorie malnutrition; Z68.1 Body mass index [BMI] 19.9 or less, adult; Z72.0 Tobacco use; E87.6 Hypokalemia; Z85.038 Personal history of other malignant neoplasm of large intestine; Z85.89 Personal history of malignant neoplasm of other organs and systems; F41.9 Anxiety disorder, unspecified; F32.9 Major depressive disorder, single episode, unspecified; F43.10 Post-traumatic stress disorder, unspecified; Z79.52 Long term (current) use of systemic steroids; G43.909 Migraine, unspecified, not intractable, without status migrainosus
CPT/HCPCS: 2NBP; 2NBSP; ERO; 36415; 71045; 82436; J1650; J2920; J2930

== ENCOUNTER 2018-03-29 17:17 | Emergency (ER) | payer OTHER ==
[~2018-03-29] VITALS: Ht 165.1 cm; Wt 56.7 kg
[~2018-03-29 17:17] MED LIST changes: +CYCLOBENZAPRINE10 M1 PO; +MOBIC15 M1 PO; +PERCOCET 5-3251 EACH PO; +PREDNISONE10 M2 PO; +PROAIR HFA8.5 GM INH
--- NOTE | 2018-03-29 17:42 | ED DYSPNEA/ASTHMA COMPLAINT ---
History of Present Illness General Chief Complaint: Dyspnea (COPD, CHF, Other) Stated Complaint: BIBA SOB Source: patient, family Exam Limitations: no limitations Vital Signs & Intake/Output Vital Signs & Intake/Output Vital Signs Date Time Temp Pulse Resp B/P B/P Pulse O2 O2 Flow FiO2 Mean Ox Delivery Rate 03/29 1819 96 20 112/78 97 Nasal 2.0L Cannula 03/29 172 97 Nasal 2.0L Cannula 03/29 172 98.7 104 22 118/76 97 Nasal 3.0L Cannula Allergies Coded Allergies: latex (Severe, HIVES 03/20/18) azithromycin (From ZITHROMAX) (Intermediate, DIARRHEA 03/20/18) Penicillins (UNKNOWN 03/20/18) Reconcile Medications Albuterol Sulfate (Proair Hfa) 90 MCG HFA.AER.AD 2 PUF INH Q4-6 PRN PRN SHORTNESS OF BREATH (Reported) Clarithromycin 250 MG TABLET 1 TAB PO BID BRONCHITIS Cyclobenzaprine HCl 10 MG TABLET 1 TAB PO BID PRN PAIN Meloxicam (Mobic) 15 MG TABLET 1 TAB PO DAILY PRN PAIN Oxycodone HCl/Acetaminophen (Percocet 5-325 MG Tablet) 5 MG-325 MG TABLET 1 TAB PO BID PAIN Prednisone 20 MG TABLET 1 TAB PO BID COPD Triage Note: 24 HRS OF INCREASING SOB/ CONGESTION Triage Nurses Notes Reviewed? yes HPI: 52F PMH COPD, active 1.5 PPD smoker presenting with shortness of breath. Has had cough with productive sputum for the past 2 days. Today she became dyspneic with minimal exertion and nearly syncopized. She was unable to speak in full sentences due to dyspnea when she first arrived and appeared pale and ill. She improved after a Duoneb treatment. Her sputum is thick and yellow without blood. No sick contacts or recent travel. She denies fever, chills, sore throat, headache, chest pain, abdominal pain, diarrhea, dysuria. Past History Travel History Traveled to [place] past 21 day No Medical History Any Pertinent Medical History? see below for history Neurological: migraine EENT: NONE Cardiovascular: NONE Respiratory: asthma, COPD, emphysema Gastrointestinal: NONE Hepatic: NONE Renal: NONE Musculoskeletal: NONE Psychiatric: anxiety, depression, PTSD Endocrine: NONE Blood Disorders: NONE Cancer(s): colon/rectal cancer, vaginal cancer [employer]/Reproductive: NONE History of MRSA: No History of VRE: No History of CDIFF: No Surgical History Surgical History: appendectomy, , VULVECTOMY Psychosocial History Who do you live with Other (see notes) Services at Home Home Health Aide What is your primary language Hungarian Tobacco Use: Current Not Daily ETOH Use: denies use Illicit Drug Use: denies illicit drug use Family History Hx Contributory? No Review of Systems Review of Systems Constitutional: Reports: no symptoms. EENTM: Reports: no symptoms. Respiratory: Reports: no symptoms. Cardiovascular: Reports: no symptoms. GI: Reports: no symptoms. Genitourinary: Reports: no symptoms. Musculoskeletal: Reports: no symptoms. Skin: Reports: no symptoms. Neurological/Psychological: Reports: no symptoms. Hematologic/Endocrine: Reports: no symptoms. Immunologic/Allergic: Reports: no symptoms. All Other Systems: Reviewed and Negative Physical Exam Physical Exam General Appearance: well developed/nourished, mild distress Head: atraumatic, normal appearance Eyes: Bilateral: normal appearance. Ears, Nose, Throat: normal pharynx, normal ENT inspection, hearing grossly normal Neck: normal inspection, supple, full range of motion Respiratory: wheezing Cardiovascular: regular rate/rhythm Gastrointestinal: soft, non-tender Extremities: normal inspection, normal range of motion Neurologic/Psych: awake, alert, oriented x 3, normal mood/affect Skin: intact, normal color, warm/dry Core Measures ACS in differential dx? No CVA/TIA Diagnosis No Sepsis Present: No Sepsis Focused Exam Completed? No Progress Differential Diagnosis: asthma, AMI, altitude sickness, bronchitis, costochondritis, CHF, COPD, musculoskeletal pain, pericarditis, pulmonary embolism, pneumonia, pneumothorax, rib fracture, unstable angina Plan of Care: Orders Procedure Date/time Status RAPID VIRAL INFLUENZA A 03/29 1741 Complete TROPONIN LEVEL 03/29 1741 Complete COMPREHENSIVE METABOLIC PANEL 03/29 1741 Complete CBC WITHOUT DIFFERENTIAL 03/29 1741 Complete Current Medications Sig/Shaq Start time Last Medication Dose Stop Time Status Admin Albuterol Sulfate 3 ML ONCE ONE 03/29 1915 UNVr (Proventil) 03/29 1916 Ipratropium [place] 2.5 ML ONCE ONE 03/29 1915 UNVr (Atrovent) 03/29 1916 Laboratory Tests 03/29/18 1803: Anion Gap 14, Estimated GFR > 60, BUN/Creatinine Ratio 16.7, Glucose 120 H, Calcium 9.5, Total Bilirubin 0.7, AST 16, ALT 15, Alkaline Phosphatase 92, Troponin I < 0.01, Total Protein 7.2, Albumin 4.3, Globulin 2.9, Albumin/ Globulin Ratio 1.5, CBC w Diff NO MAN DIFF REQ, RBC 4.87, MCV 89.2, MCH 29.7, MCHC 33.3, RDW 13.0, MPV 7.2 L, Gran % 77.1 H, Lymphocytes % 14.4 L, Monocytes % 7.7, Eosinophils % 0.6, Basophils % 0.2, Absolute Granulocytes 8.5 H, Absolute Lymphocytes 1.6, Absolute Monocytes 0.8 H, Absolute Eosinophils 0.1 , Absolute Basophils 0 Microbiology 03/29 1750 NASOPHARYN: Influenza Virus A & B Rapid Smear - COMP Diagnostic Imaging: Viewed by Me: Radiology Read. Discussed w/RAD: Radiology Read. Radiology Impression: PATIENT: SHANNAN TRAN PRESENT AGE: 52 PATIENT ACCOUNT NO: [id number] : 67 LOCATION: [facility] ORDERING PHYSICIAN: Wally Combs MD SERVICE DATE: 03/29/18 EXAM TYPE: RAD - XRY-CHEST XRAY, TWO VIEWS EXAMINATION: XR CHEST CLINICAL INFORMATION: Dyspnea. Decreased breath sounds on the left. COMPARISON: None TECHNIQUE: 2 views of the chest were obtained. FINDINGS: There is emphysematous hyperinflation of lungs. No infiltrate. No pleural effusion or pneumothorax. The heart size is normal. The cardiac and mediastinal contours are normal. There is no pulmonary vascular congestion. IMPRESSION: No acute abnormality of the chest. DICTATED BY: Randy Horner MD DATE/TIME DICTATED:03/29/181840 DIRECTOR COMMUNICATIONS:AILYN DATE/TIME TRANSCRIBED:03/29/181840 Initial ED EKG: normal sinus rhythm, no ST T wave changes Departure Departure Disposition: HOME OR SELF CARE Condition: Stable Clinical Impression Primary Impression: COPD exacerbation Secondary Impressions: Acute bronchitis Referrals: Reese Barahona MD (PCP/Family) Additional Instructions: Follow up with your PCP. Return to ER if new or worsening symptoms. Departure Forms: Customer Survey General Discharge Information Prescriptions: Current Visit Scripts Prednisone 1 TAB PO BID #10 TAB Clarithromycin 1 TAB PO BID #14 TAB Critical Care Note Critical Care Note Critical Care Time: 30-74 min
--- NOTE | 2018-03-29 18:45 | RADIOLOGY REPORT ---
EXAMINATION: XR CHEST CLINICAL INFORMATION: Dyspnea. Decreased breath sounds on the left. COMPARISON: None TECHNIQUE: 2 views of the chest were obtained. FINDINGS: There is emphysematous hyperinflation of lungs. No infiltrate. No pleural effusion or pneumothorax. The heart size is normal. The cardiac and mediastinal contours are normal. There is no pulmonary vascular congestion. IMPRESSION: No acute abnormality of the chest.
[2018-03-29 18:47] LABS: ABSOLUTE BASOPHIL COUNT 0 /CUMM (0.0-0.2); ABSOLUTE EOSINOPHIL COUNT 0.1 /CUMM (0.0-0.7); ABSOLUTE GRANULOCYTE CT 8.5 /CUMM (1.4-6.5); ABSOLUTE LYMPH COUNT 1.6 /CUMM (1.2-3.4); ABSOLUTE MONOCYTE COUNT 0.8 /CUMM (0.10-0.60); BASOPHIL % 0.2 % (0.0-2.0); EOSINOPHIL % 0.6 % (0-5); GRANULOCYTE % 77.1 % (42.2-75.2); HEMATOCRIT 43.4 % (37-47); MEAN CORPUSCULAR HGB 29.7 PG (27.0-31.0); MEAN CORPUSCULAR HGB CONC 33.3 G/DL (33.0-37.0); MEAN CORPUSCULAR VOLUME 89.2 FL (81.0-99.0); MEAN PLATELET VOLUME 7.2 FL (7.4-10.4); PLATELET COUNT 309 /CUMM (130-400); RED BLOOD CELL CT 4.87 /CUMM (4.20-5.40)
[2018-03-29] MEDS ORDERED: PREDNISONE20 M1 PO (19:09)
[2018-03-29] MEDS ORDERED: CLARITHROMYCIN250 M1 PO (19:09)
[2018-03-29 19:59] VITALS: BP 112/76
== END 2018-03-29 20:03 ==
LOC: ERH 17:17
PROVIDERS: Internal Medicine
DX: J44.1 Chronic obstructive pulmonary disease with (acute) exacerbation (principal); F17.200 Nicotine dependence, unspecified, uncomplicated
CPT/HCPCS: 1263; 71046; 87804; 87804-59; 96374; J2930